=== PATIENT | male | born 1955 | race Hispanic/Latino ===

== ENCOUNTER 2017-03-07 17:08 | Inpatient (IN) | payer MEDICARE ==
--- NOTE | 2017-03-07 18:01 | ED PDOC ---
HPI: Psych/Substance Abuse Time Seen by Provider: 03/07/17 17:48 Chief Complaint (Nursing): Psychiatric Evaluation Chief Complaint (Provider): AMS, fall History Per: Patient, EMS Additional Complaint(s): 61-year-old non-domiciled male presents to emergency department for evaluation status post fall. Patient had witnessed fall on sidewalk and as per EMS hit the right side of his head against the ground as witnessed by bystanders. Patient was laying on the ground when EMS arrived and when EMS tried to help the patient he became violent and very combative. Patient was transported here and arrived acutely agitated. Past Medical History Reviewed: Historical Data, Nursing Documentation, Vital Signs, Unable To Obtain - Family History Family History: States: Unknown Family Hx - Living Arrangements Living Arrangements: Other (non-domiciled) - Home Medications Home Medications: Ambulatory Orders Medication Instructions Recorded Unobtainable 03/08/17 - Allergies Allergies/Adverse Reactions: Allergies Allergy/AdvReac Type Severity Reaction Status Date / Time No Known Allergies Allergy Verified 03/07/17 17:13 Review of Systems ROS Statement: Except As Marked, All Systems Reviewed And Found Negative Neurological: Positive for: Other (head injury, fall) Physical Exam - Reviewed Nursing Documentation Reviewed: Yes Vital Signs Reviewed: Yes - Physical Exam Appears: Negative for: Well (discheveled and unkempt) Skin: Negative for: Rash Eye Exam: Positive for: Normal appearance Cardiovascular/Chest: Positive for: Regular Rate, Rhythm Respiratory: Positive for: Normal Breath Sounds Extremity: Positive for: Pedal Edema, Other (blisters, edema and skin breakdown noted to feet bilaterally) Neurologic/Psych: Negative for: Other (alert, agitated, not answers questions appropriately) - Laboratory Results Result Diagrams: 03/07/17 18:53 03/07/17 18:53 - ECG O2 Sat by Pulse Oximetry: 95 Pulse Ox Interpretation: Normal - Other Rad bedside chest X-Ray: Interpreted by Me, Viewed By Me X-Ray Interpretation: no acute finding Medical Decision Making Medical Decision Makin61 year old EDP s/p fall Patient is combative upon arrival, threatening and yelling at ED staff. Patient was placed in four point restraints for his safety and safety of ED staff. He was medicated with 2 mg IM Ativan and 5 mg IM Haldol for acute agitation. Patient was placed under bedside one-to-one observation Plan: CBC CMP CT head UA UDS BAL Disposition - Clinical Impression Clinical Impression: Fall, Agitation, Altered mental state - Patient ED Disposition Is Patient to be Admitted: Transfer of Care - Disposition Disposition: Transfer of Care Disposition Time: 20:03 Condition: GUARDED Patient Signed Over To: Sonia Loera Handoff Comments: Signed out pending diagnostic testing results and final disposition
--- NOTE | 2017-03-07 18:34 | RAD ---
HISTORY: Medical clearance. COMPARISON: No prior. FINDINGS: LUNGS: No active pulmonary disease. PLEURA: No significant pleural effusion identified, no pneumothorax apparent. CARDIOVASCULAR: No radiographic findings to suggest acute or significant cardiovascular disease. OSSEOUS STRUCTURES: No significant abnormalities. VISUALIZED UPPER ABDOMEN: Normal. OTHER FINDINGS: None. IMPRESSION: No active disease.
[2017-03-07 19:00] LABS: BASO % 0.2 % (0.0-2.0); EOS % 0.6 % (0.0-4.0); HEMATOCRIT 38.2 % (35.0-51.0); LYMPH # 0.5 K/uL (1.0-4.3); LYMPH % 6.2 % (20.0-40.0); MEAN CELL VOLUME 91.1 fl (80.0-94.0); MEAN CORPUSCULAR HEMOGLOBIN 30.9 pg (27.0-31.0); MEAN PLATELET VOLUME 8.5 fl (7.2-11.7); MONO % 11.6 % (0.0-10.0); NEUT # 6.9 K/uL (1.8-7.0); NEUT % 81.4 % (50.0-75.0); NRBC % 0.2 % (0.0-0.0); PLATELET COUNT 124 K/uL (130-400); RED CELL DISTRIBUTION WIDTH 14.2 % (11.5-14.5); WHITE BLOOD COUNT 8.5 K/uL (4.8-10.8)
[2017-03-07 19:09] LABS: ALB/GLOB RATIO 1.1 (1.0-2.1); ALCOHOL SERUM < 10 mg/dl (0-10); ALKALINE PHOSPHATASE 81 U/L (38-126); ALT/SGPT 59 U/L (21-72); AST/SGOT 52 U/L (17-59); BILIRUBIN,TOTAL 0.7 mg/dl (0.2-1.3); BLOOD UREA NITROGEN 19 mg/dl (9-20); CALCIUM 8.9 mg/dL (8.4-10.2); CARBON DIOXIDE 24 mmol/L (22-30); CHLORIDE 103 mmol/L (98-107); GFR AFRICAN-AMERICAN > 60; GLUCOSE,RANDOM 113 mg/dL (75-110); POTASSIUM 3.5 MMOL/L (3.6-5.0); SODIUM 138 mmol/l (132-148); TOTAL PROTEIN 7.2 G/DL (6.3-8.2)
[2017-03-07 20:49] LABS: LARGE PLATELETS PRESENT; NEUTROPHIL 84 % (42-75); TOTAL CELLS COUNTED 100
--- NOTE | 2017-03-07 21:12 | ED PDOC ---
- Laboratory Results Result Diagrams: 03/10/17 04:20 03/10/17 04:20 - Progress ED Course And Treament: Case endorsed to advertising copy writer from [facility] pending imaging, urine, re-eval EXAM: CT Head Without Intravenous Contrast EXAM DATE/TIME: 03/07/2017 CLINICAL HISTORY: Signs and symptoms; Altered mental status/memory loss; Additional info: AMS TECHNIQUE: Axial computed tomography images of the head/brain without intravenous contrast. All CT scans at this facility use one or more dose reduction techniques, viz.: automated exposure control; ma/kV adjustment per patient size (including targeted exams where dose is matched to indication; i.e. head); or iterative reconstruction technique. Coronal and sagittal reformatted images were created and reviewed. COMPARISON: Per the supervisor cured meats, the patient has no prior studies for comparison.[id number] FINDINGS: Brain: No acute intracranial hemorrhage. No abnormal extra-axial fluid collection. No herniation. Patent basal cisterns. 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 Old lacunar infarcts in the right thalamus and both basal ganglia. Preserved obrien-white matter differentiation in the rest of the brain. No evidence of acute ischemia. Cerebral white matter low attenuation compatible with chronic small vessel ischemic changes. No evident intracranial mass. Ventricles: No hydrocephalus. Bones/joints: No destructive calvarial lesion. Soft tissues: No acute findings. Sinuses: Mild mucosal thickening in the paranasal sinuses, most prominent in the left maxillary sinus. Mastoid air cells: The mastoid air cells are clear. Orbits: No evident acute abnormality of the intraorbital contents. Dental: Multiple dental caries. Low attenuation surrounding the roots of multiple teeth. IMPRESSION: 1. No evident acute intracranial abnormality. Non-acute findings as described above. 2. Mild mucosal thickening in the paranasal sinuses. 3. Multiple dental caries. Low attenuation surrounding the roots of multiple teeth is consistent with apical periodontitis, including possible periapical abscess(es). 3:00 Patient awake, able to provide name and . Patient has MR# [id number] 5:30 Patient helped out of bed and noted to have unsteady gait; grabbing on to stokes and chairs. BP elevated, HR elevated. Patient denies history of recent alcohol use. CAse discussed with ED attending Dr. Butts; will admit for tachycardia, hypertension, and unsteady gait. Case discussed with Dr. Daniels for admission. Disposition - Clinical Impression Clinical Impression: Fall, Agitation, Altered mental state - POA Present On Arrival: Falls Or Trauma - Disposition Disposition: Admitted as In-Patient Disposition Time: 06:00 Condition: FAIR
[2017-03-07 21:52] LABS: URINE BILIRUBIN NEGATIVE (NEGATIVE); URINE BLOOD MODERATE (NEGATIVE); URINE COLOR STRAW (YELLOW); URINE GLUCOSE (UA) NEG (Normal); URINE KETONE NEGATIVE (NEGATIVE); URINE LEUKOCYTE ESTERASE NEG Leu/uL (Negative); URINE PROTEIN 30 mg/dL (NEGATIVE); URINE UROBILINOGEN 0.2-1.0 mg/dL (0.2-1.0); WBC URINE < 1 /hpf (0-5)
[2017-03-07] MEDS ORDERED: Sodium Chloride 0.9% 1,000 ML IV STA (22:08)
[2017-03-07 22:11] LABS: RBC URINE 20 /hpf (0-3)
[2017-03-07 22:12] LABS: URINE BACTERIA RARE (<OCC)
[2017-03-07] MEDS ORDERED: Multivitamin (MVI) 10 ML, Thiamine 100 MG in Dextrose 5%/0.45% NS 1,000 ML IV ONE (23:00)
[2017-03-08] MEDS ORDERED: MULTIVITAMIN IV ONE (00:45)
[2017-03-08] MEDS ORDERED: DEXTROSE IV ONE (00:45)
[2017-03-08] MEDS ORDERED: THIAMINE IV ONE (00:45)
[2017-03-08] MEDS ORDERED: NS IV ONE (00:45)
[2017-03-08 00:48] LABS: LIPASE 133 U/L (23-300)
[2017-03-08 07:40] LABS: TROPONIN I 0.102 ng/mL (0.00-0.120)
--- NOTE | 2017-03-08 07:55 | CT ---
PROCEDURE: CT HEAD WITHOUT CONTRAST. HISTORY: AMS COMPARISON: None available. TECHNIQUE: Axial computed tomography images were obtained through the head/brain without intravenous contrast. Radiation dose: Total exam DLP = 1281.71 mGy-cm. This CT exam was performed using one or more of the following dose reduction techniques: Automated exposure control, adjustment of the mA and/or kV according to patient size, and/or use of iterative reconstruction technique. FINDINGS: HEMORRHAGE: No intracranial hemorrhage. BRAIN: No mass effect or edema. Encephalomalacia change left occipital region. Additional foci of diminished attenuation in both basal ganglia and right thalamus. VENTRICLES: Unremarkable. No hydrocephalus. CALVARIUM: Unremarkable. PARANASAL SINUSES: Unremarkable as visualized. No significant inflammatory changes. MASTOID AIR CELLS: Unremarkable as visualized. No inflammatory changes. OTHER FINDINGS: None. IMPRESSION: No acute intracranial abnormalities. No significant findings to account for the clinical presentation. Additional benign and/or incidental findings described above. Concordant results (preliminary interpretation) provided by [email or web address]. Procedure Completed: 20:03 Preliminary ([facility]) Report: Dictated and Authenticated: 20:37 Final Interpretation: 07:53 March 08, 2017.
--- NOTE | 2017-03-08 09:57 | CP.PCM.HP ---
Past Patient History - Past Social History Smoking Status: Unknown If Ever Smoked - CARDIAC Hx Cardiac Disorders: No Hx Hypertension: No - PULMONARY Hx Tuberculosis: No - NEUROLOGICAL HX Cerebrovascular Accident: No Hx Seizures: No - HEMATOLOGICAL/ONCOLOGICAL Hx Cancer: No Hx Human Immunodeficiency Virus (HIV): No - GENITOURINARY/GYNECOLOGICAL Hx Sexually Transmitted Disorders: No - PSYCHIATRIC Hx Substance Use: No Meds Allergies/Adverse Reactions: Allergies Allergy/AdvReac Type Severity Reaction Status Date / Time No Known Allergies Allergy Verified 03/07/17 17:13 Results - Vital Signs Recent Vital Signs: Last Vital Signs Temp 97.6 F 03/08/17 05:58 Pulse 85 03/08/17 08:12 Resp 17 03/08/17 08:12 BP 164/98 H 03/08/17 08:12 Pulse Ox 95 03/08/17 08:12 - Labs Result Diagrams: 03/07/17 18:53 03/07/17 18:53 Labs: Laboratory Results - last 24 hr 03/07/17 03/07/17 03/07/17 18:53 18:53 21:41 WBC 8.5 RBC 4.19 L Hgb 13.0 Hct 38.2 MCV 91.1 MCH 30.9 MCHC 34.0 RDW 14.2 Plt Count 124 L MPV 8.5 Neut % (Auto) 81.4 H Lymph % (Auto) 6.2 L [place] % (Auto) 11.6 H Eos % (Auto) 0.6 Baso % (Auto) 0.2 Neut # 6.9 Lymph # 0.5 L [place] # 1.0 H Eos # 0.0 Baso # 0.0 Neutrophils % (Manual) 84 H Band Neutrophils % 1 Lymphocytes % (Manual) 7 L Monocytes % (Manual) 8 Toxic Granulation Present Platelet Estimate Slightly decreased L Large Platelets Present Anisocytosis (manual) Slight Sodium 138 Potassium 3.5 L Chloride 103 Carbon Dioxide 24 Anion Gap 15 BUN 19 Creatinine 0.9 Est GFR ( Amer) > 60 Est GFR (Non-Af Amer) > 60 Random Glucose 113 H Calcium 8.9 Total Bilirubin 0.7 AST 52 ALT 59 Alkaline Phosphatase 81 Troponin I NT-Pro-B Natriuret Pep Total Protein 7.2 Albumin 3.7 Globulin 3.4 Albumin/Globulin Ratio 1.1 Lipase 133 Urine Color Urine Clarity Urine pH Ur Specific [place] Urine Protein Urine Glucose (UA) Urine Ketones Urine Blood Urine Nitrate Urine Bilirubin Urine Urobilinogen Ur Leukocyte Esterase Urine RBC (Auto) Urine Microscopic WBC Ur Squamous Epith Cells Amorphous Sediment Urine Bacteria Urine Opiates Screen Negative Urine Methadone Screen Negative Ur Barbiturates Screen Negative Ur Phencyclidine Scrn Negative Ur Amphetamines Screen Negative U Benzodiazepines Scrn Negative U Oth Cocaine Metabols Negative U Cannabinoids Screen Negative Alcohol, Quantitative < 10 03/07/17 03/08/17 21:41 07:05 WBC RBC Hgb Hct MCV MCH MCHC RDW Plt Count MPV Neut % (Auto) Lymph % (Auto) [place] % (Auto) Eos % (Auto) Baso % (Auto) Neut # Lymph # [place] # Eos # Baso # Neutrophils % (Manual) Band Neutrophils % Lymphocytes % (Manual) Monocytes % (Manual) Toxic Granulation Platelet Estimate Large Platelets Anisocytosis (manual) Sodium Potassium Chloride Carbon Dioxide Anion Gap BUN Creatinine Est GFR ( Amer) Est GFR (Non-Af Amer) Random Glucose Calcium Total Bilirubin AST ALT Alkaline Phosphatase Troponin I 0.1020 NT-Pro-B Natriuret Pep 9760 H Total Protein Albumin Globulin Albumin/Globulin Ratio Lipase Urine Color Straw Urine Clarity Clear Urine pH 8.0 Ur Specific [place] 1.009 Urine Protein 30 Urine Glucose (UA) Neg Urine Ketones Negative Urine Blood Moderate Urine Nitrate Negative Urine Bilirubin Negative Urine Urobilinogen 0.2-1.0 Ur Leukocyte Esterase Neg Urine RBC (Auto) 20 H Urine Microscopic WBC < 1 Ur Squamous Epith Cells < 1 Amorphous Sediment Few H Urine Bacteria Rare Urine Opiates Screen Urine Methadone Screen Ur Barbiturates Screen Ur Phencyclidine Scrn Ur Amphetamines Screen U Benzodiazepines Scrn U Oth Cocaine Metabols U Cannabinoids Screen Alcohol, Quantitative
[2017-03-08] MEDS ORDERED: Potassium Chloride 20 mEq/15 ml LIQ UD PO ONE (10:30)
[2017-03-08 12:42] LABS: THYROID STIMULATING HORMONE 2.74 mIU/ML (0.46-4.68)
--- NOTE | 2017-03-08 18:06 | CARD ---
APPROVED REPORT EKG Measurement Heart [id number] <Conclusion> Sinus tachycardia Septal infarct, age undetermined Abnormal ECG
[2017-03-09] MEDS: levoFLOXacin 500 mg in D5W 500 MG/100 ML BAG IVPB SCH (06:09)
[2017-03-09 07:38] LABS: RBC URINE 1 /hpf (0-3); URINE BILIRUBIN NEGATIVE (NEGATIVE); URINE BLOOD NEGATIVE (NEGATIVE); URINE COLOR YELLOW (YELLOW); URINE GLUCOSE (UA) 50 mg/dL (Normal); URINE KETONE TRACE mg/dL (NEGATIVE); URINE LEUKOCYTE ESTERASE NEG Leu/uL (Negative); URINE PROTEIN 30 mg/dL (NEGATIVE); WBC URINE < 1 /hpf (0-5)
[2017-03-09] MEDS ORDERED: EnalaprilAT 1.25 mg/ml Inj IV ONE (15:16)
[2017-03-09 15:44] LABS: BASO % 0.3 % (0.0-2.0); EOS # 0.3 K/uL (0.0-0.7); EOS % 2.7 % (0.0-4.0); HEMATOCRIT 39.4 % (35.0-51.0); LYMPH # 1.1 K/uL (1.0-4.3); MEAN CELL VOLUME 90.7 fl (80.0-94.0); MEAN CORPUSCULAR HEMOGLOBIN 30.5 pg (27.0-31.0); MEAN CORPUSCULAR HGB CONC 33.6 g/dL (33.0-37.0); MEAN PLATELET VOLUME 8.2 fl (7.2-11.7); MONO # 1.1 K/uL (0.0-0.8); MONO % 12.2 % (0.0-10.0); NEUT # 6.8 K/uL (1.8-7.0); NEUT % 72.8 % (50.0-75.0); WHITE BLOOD COUNT 9.3 K/uL (4.8-10.8)
[2017-03-09 16:01] LABS: ALKALINE PHOSPHATASE 64 U/L (38-126); ALT/SGPT 56 U/L (21-72); AST/SGOT 51 U/L (17-59); BILIRUBIN,TOTAL 1.3 mg/dl (0.2-1.3); BLOOD UREA NITROGEN 21 mg/dl (9-20); CALCIUM 8.7 mg/dL (8.4-10.2); CARBON DIOXIDE 24 mmol/L (22-30); CHLORIDE 107 mmol/L (98-107); GFR AFRICAN-AMERICAN > 60; GLUCOSE,RANDOM 110 mg/dL (75-110); POTASSIUM 3.6 MMOL/L (3.6-5.0); SODIUM 140 mmol/l (132-148); TOTAL PROTEIN 6.7 G/DL (6.3-8.2)
--- NOTE | 2017-03-09 21:24 | CP.PCM.PN ---
Subjective - Date & Time of Evaluation Date of Evaluation: 03/09/17 Time of Evaluation: 14:30 Objective - Vital Signs/Intake and Output Vital Signs (last 24 hours): Temp Pulse Resp BP Pulse Ox 98.8 F 103 H 16 176/90 H 97 03/09/17 20:47 03/09/17 20:47 03/09/17 20:47 03/09/17 20:47 03/09/17 20:47 - Medications Medications: Current Medications Acetaminophen (Tylenol 325mg Tab) 650 mg PO Q4 PRN PRN Reason: fever of 100.3 and above Last Admin: 03/09/17 06:05 Dose: 650 mg Clonidine HCl (Catapres-Tts2 0.2 Mg/24 Hr) 1 patch TD Q7D [facility] Last Admin: 03/09/17 15:58 Dose: 1 patch Heparin Sodium (Porcine) (Heparin) 5,000 units SC Q8 SANDRA PRN Reason: Protocol Hydralazine HCl (Apresoline) 10 mg IV Q6 PRN PRN Reason: SBP>180. DBP>110 Last Admin: 03/09/17 10:40 Dose: 10 mg Levofloxacin/Dextrose (Levaquin 500mg) 500 mg in 100 mls @ 100 mls/hr IVPB DAILY [facility] Last Admin: 03/09/17 06:09 Dose: 100 mls/hr - Labs Labs: 03/09/17 15:39 03/09/17 15:39
[2017-03-10 06:03] LABS: BASO # 0.1 K/uL (0.0-0.2); BASO % 0.9 % (0.0-2.0); EOS # 0.5 K/uL (0.0-0.7); EOS % 6.7 % (0.0-4.0); HEMATOCRIT 39.3 % (35.0-51.0); LYMPH # 1.3 K/uL (1.0-4.3); LYMPH % 16.8 % (20.0-40.0); MEAN CELL VOLUME 92.3 fl (80.0-94.0); MEAN CORPUSCULAR HEMOGLOBIN 30.7 pg (27.0-31.0); MEAN CORPUSCULAR HGB CONC 33.3 g/dL (33.0-37.0); MEAN PLATELET VOLUME 8.6 fl (7.2-11.7); MONO # 0.8 K/uL (0.0-0.8); MONO % 11.1 % (0.0-10.0); NEUT # 4.8 K/uL (1.8-7.0); NEUT % 64.5 % (50.0-75.0); NRBC % 0.1 % (0.0-0.0); RED CELL DISTRIBUTION WIDTH 13.8 % (11.5-14.5); WHITE BLOOD COUNT 7.5 K/uL (4.8-10.8)
[2017-03-10 07:13] LABS: ALB/GLOB RATIO 0.9 (1.0-2.1); ALKALINE PHOSPHATASE 60 U/L (38-126); ALT/SGPT 61 U/L (21-72); AST/SGOT 51 U/L (17-59); BILIRUBIN,TOTAL 1.5 mg/dl (0.2-1.3); BLOOD UREA NITROGEN 26 mg/dl (9-20); CALCIUM 8.5 mg/dL (8.4-10.2); CARBON DIOXIDE 22 mmol/L (22-30); CHLORIDE 108 mmol/L (98-107); GFR AFRICAN-AMERICAN > 60; GLUCOSE,RANDOM 84 mg/dL (75-110); MAGNESIUM 1.8 MG/DL (1.6-2.3); POTASSIUM 3.6 MMOL/L (3.6-5.0); SODIUM 140 mmol/l (132-148); TOTAL PROTEIN 6.5 G/DL (6.3-8.2)
[2017-03-10] MEDS: levoFLOXacin 500 mg in D5W 500 MG/100 ML BAG IVPB SCH (14:25)
--- NOTE | 2017-03-11 00:28 | CP.PCM.PN ---
Subjective - Date & Time of Evaluation Date of Evaluation: 03/10/17 Time of Evaluation: 11:30 Objective - Vital Signs/Intake and Output Vital Signs (last 24 hours): Temp Pulse Resp BP Pulse Ox 97.4 F L 94 H 20 179/89 H 98 03/11/17 00:09 03/11/17 00:09 03/11/17 00:09 03/11/17 00:09 03/11/17 00:09 - Medications Medications: Current Medications Acetaminophen (Tylenol 325mg Tab) 650 mg PO Q4 PRN PRN Reason: fever of 100.3 and above Last Admin: 03/09/17 06:05 Dose: 650 mg Amlodipine Besylate (Norvasc) 10 mg PO DAILY [facility] Last Admin: 03/10/17 14:22 Dose: 10 mg Clonidine HCl (Catapres-Tts3 0.3 Mg/24 Hr) 1 patch TD Q7D [facility] Last Admin: 03/10/17 16:56 Dose: 1 patch Heparin Sodium (Porcine) (Heparin) 5,000 units SC Q8 SANDRA PRN Reason: Protocol Last Admin: 03/10/17 16:57 Dose: 5,000 units Hydralazine HCl (Apresoline) 10 mg IV Q6 PRN PRN Reason: SBP>180. DBP>110 Last Admin: 03/10/17 16:57 Dose: 10 mg Levofloxacin/Dextrose (Levaquin 500mg) 500 mg in 100 mls @ 100 mls/hr IVPB DAILY [facility] Last Admin: 03/10/17 14:25 Dose: 100 mls/hr - Labs Labs: 03/10/17 04:20 03/10/17 04:20
[2017-03-11] MEDS: levoFLOXacin 500 mg in D5W 500 MG/100 ML BAG IVPB SCH (08:58)
--- NOTE | 2017-03-11 23:59 | CP.PCM.PN ---
Objective - Vital Signs/Intake and Output Vital Signs (last 24 hours): Temp Pulse Resp BP Pulse Ox 97.6 F 76 20 160/102 H 100 03/11/17 19:32 03/11/17 20:59 03/11/17 19:32 03/11/17 20:59 03/11/17 19:32 - Medications Medications: Current Medications Acetaminophen (Tylenol 325mg Tab) 650 mg PO Q4 PRN PRN Reason: fever of 100.3 and above Last Admin: 03/09/17 06:05 Dose: 650 mg Amlodipine Besylate (Norvasc) 10 mg PO DAILY [facility] Last Admin: 03/11/17 08:57 Dose: 10 mg Carvedilol (Coreg) 6.25 mg PO Q12 [facility] Last Admin: 03/11/17 20:59 Dose: 6.25 mg Clonidine HCl (Catapres-Tts3 0.3 Mg/24 Hr) 1 patch TD Q7D [facility] Last Admin: 03/10/17 16:56 Dose: 1 patch Heparin Sodium (Porcine) (Heparin) 5,000 units SC Q8 SANDRA PRN Reason: Protocol Last Admin: 03/11/17 16:47 Dose: 5,000 units Hydralazine HCl (Apresoline) 10 mg IV Q6 PRN PRN Reason: SBP>180. DBP>110 Last Admin: 03/11/17 13:03 Dose: 10 mg Levofloxacin/Dextrose (Levaquin 500mg) 500 mg in 100 mls @ 100 mls/hr IVPB DAILY [facility] Last Admin: 03/11/17 08:58 Dose: 100 mls/hr - Labs Labs: 03/10/17 04:20 03/10/17 04:20
[2017-03-12] MEDS: levoFLOXacin 500 mg in D5W 500 MG/100 ML BAG IVPB SCH (08:48)
--- NOTE | 2017-03-12 23:56 | CON ---
DATE: CARDIOLOGY CONSULTATION REASON FOR CONSULTATION: Uncontrolled hypertension and occasional ventricular ectopy on the monitor. HISTORY OF PRESENT ILLNESS: The patient is a 61-year-old who is homeless, who was found falling on a sidewalk, was brought by the EMS. The patient was combative in the field and agitated in the emergency room. There is no reported ventricular arrhythmia on this patient. The patient does not give me any reliable answers to my questions and he tells me he lives in [place], but does not elaborate more on his life conditions. The patient denies any heart condition in the past. SOCIAL HISTORY: The patient is a smoker. He denies drinking. MEDICATIONS: Hydralazine 10 mg intravenously q.6 hours p.r.n., clonidine 0.3 mg 1 patch weekly, Coreg 6.25 mg twice a day, heparin 5000 units q.8 hours, Levaquin 500 mg intravenously daily, Norvasc 10 mg once a day. REVIEW OF SYSTEMS: No reported seizure on telemetry. No reported hypotension and no reported ventricular tachycardia. PHYSICAL EXAMINATION: GENERAL: The patient is a middle-aged male, who does not appear to be in any distress. VITAL SIGNS: Blood pressure 164/90, heart rate 80, temperature 97.7, respirations 18. HEENT: No pallor or icterus. NECK: No JVD. CHEST: Clear. HEART: S1 and S2 regular. EXTREMITIES: No edema. LABORATORY DATA: Urine drug screen is negative. Alcohol level is below 10. SMA-7 on 03/10/2017, sodium 140, potassium 3.6, chloride 108, CO2 of 22, glucose 84, BUN 26, creatinine 1.1. Hemoglobin, hematocrit, and white count are within normal limits. Platelet count is slightly below normal at 124. RPR is nonreactive. Head CT scan without contrast, no acute intracranial abnormality. Chest x-ray was unremarkable except for prominent bronchovascular markings. EKG reveals sinus tachycardia at rate of 120, septal infarct of indeterminate age. ASSESSMENT: 1. Status post fall. 2. Hypertension. 3. Mild thrombocytopenia. RECOMMENDATIONS: Continue current IV hydralazine p.r.n. Continue Coreg 6.25 mg twice a day. Continue clonidine patch at 0.3 mg weekly. Continue Norvasc 10 mg once a day. Obtain an echocardiogram and consider repeating head CT scan without contrast. Carlos Gray MD
--- NOTE | 2017-03-13 00:04 | CP.PCM.PN ---
Subjective - Date & Time of Evaluation Date of Evaluation: 03/12/17 Time of Evaluation: 13:30 Objective - Vital Signs/Intake and Output Vital Signs (last 24 hours): Temp Pulse Resp BP Pulse Ox 98.2 F 74 20 175/95 H 100 03/12/17 19:32 03/12/17 21:26 03/12/17 19:32 03/12/17 21:26 03/12/17 19:32 - Medications Medications: Current Medications Acetaminophen (Tylenol 325mg Tab) 650 mg PO Q4 PRN PRN Reason: fever of 100.3 and above Last Admin: 03/09/17 06:05 Dose: 650 mg Amlodipine Besylate (Norvasc) 10 mg PO DAILY [facility] Last Admin: 03/12/17 08:48 Dose: 10 mg Carvedilol (Coreg) 6.25 mg PO Q12 [facility] Last Admin: 03/12/17 21:26 Dose: 6.25 mg Clonidine HCl (Catapres-Tts3 0.3 Mg/24 Hr) 1 patch TD Q7D [facility] Last Admin: 03/10/17 16:56 Dose: 1 patch Heparin Sodium (Porcine) (Heparin) 5,000 units SC Q8 SANDRA PRN Reason: Protocol Last Admin: 03/12/17 16:35 Dose: 5,000 units Hydralazine HCl (Apresoline) 10 mg IV Q6 PRN PRN Reason: SBP>180. DBP>110 Last Admin: 03/11/17 13:03 Dose: 10 mg Levofloxacin/Dextrose (Levaquin 500mg) 500 mg in 100 mls @ 100 mls/hr IVPB DAILY [facility] Last Admin: 03/12/17 08:48 Dose: 100 mls/hr - Labs Labs: 03/10/17 04:20 03/10/17 04:20
[2017-03-13] MEDS: levoFLOXacin 500 mg in D5W 500 MG/100 ML BAG IVPB SCH ×2 (10:08→10:09)
[2017-03-13 12:42] VITALS: TEMP 97.6
--- NOTE | 2017-03-13 15:34 | PN ---
DATE: SUBJECTIVE: The patient denies any chest pain. PHYSICAL EXAMINATION: VITAL SIGNS: Blood pressure 166/99, heart rate 66, temperature 97.8, respirations 18. HEENT: Normocephalic. CHEST: Bilateral rhonchi. HEART: S1 and S2, regular. EXTREMITIES: No edema. ASSESSMENT: 1. Status post fall. 2. Uncontrolled hypertension. RECOMMENDATIONS: Continue Norvasc 10 mg once a day, Coreg 6.25 mg twice a day, clonidine patch at 0.3 mg weekly. Discontinue IV hydralazine and start hydralazine orally at 50 mg q. 8 hours. I will follow the echocardiographic studies that was performed today. Carlos Gray MD
[2017-03-13 16:05] VITALS: BP 138/79; PULSE 75; RESP 20; O2SAT 98
--- NOTE | 2017-03-13 23:15 | CP.PCM.PN ---
Subjective - Date & Time of Evaluation Date of Evaluation: 03/13/17 Time of Evaluation: 13:25 Objective - Vital Signs/Intake and Output Vital Signs (last 24 hours): Temp Pulse Resp BP Pulse Ox 97.6 F 75 20 138/79 98 03/13/17 17:00 03/13/17 17:00 03/13/17 17:00 03/13/17 17:00 03/13/17 17:00 Intake and Output: 03/13/17 03/14/17 18:59 06:59 Intake Total 350 Balance 350 - Labs Labs: 03/10/17 04:20 03/10/17 04:20
--- NOTE | 2017-03-13 23:21 | CP.PCM.DIS ---
Provider - Provider Date of Admission: 03/08/17 06:05 Attending physician: Cortez Daniels MD Time Spent in preparation of Discharge (in minutes): 25 Hospital Course - Lab Results Lab Results: Micro Results 03/09/17 07:05 Urine,Clean Catch Urine Culture - Final No Growth (<1,000 CFU/ML) Most Recent Lab Values WBC 7.5 K/uL (4.8-10.8) 03/10/17 04:20 RBC 4.26 Mil/uL (4.40-5.90) L 03/10/17 04:20 Hgb 13.1 g/dL (12.0-18.0) 03/10/17 04:20 Hct 39.3 % (35.0-51.0) 03/10/17 04:20 MCV 92.3 fl (80.0-94.0) 03/10/17 04:20 MCH 30.7 pg (27.0-31.0) 03/10/17 04:20 MCHC 33.3 g/dL (33.0-37.0) 03/10/17 04:20 RDW 13.8 % (11.5-14.5) 03/10/17 04:20 Plt Count 124 K/uL (130-400) L 03/10/17 04:20 MPV 8.6 fl (7.2-11.7) 03/10/17 04:20 Neut % (Auto) 64.5 % (50.0-75.0) 03/10/17 04:20 Lymph % (Auto) 16.8 % (20.0-40.0) L 03/10/17 04:20 [place] % (Auto) 11.1 % (0.0-10.0) H 03/10/17 04:20 Eos % (Auto) 6.7 % (0.0-4.0) H 03/10/17 04:20 Baso % (Auto) 0.9 % (0.0-2.0) 03/10/17 04:20 Neut # 4.8 K/uL (1.8-7.0) 03/10/17 04:20 Lymph # 1.3 K/uL (1.0-4.3) 03/10/17 04:20 [place] # 0.8 K/uL (0.0-0.8) 03/10/17 04:20 Eos # 0.5 K/uL (0.0-0.7) 03/10/17 04:20 Baso # 0.1 K/uL (0.0-0.2) 03/10/17 04:20 Neutrophils % (Manual) 84 % (42-75) H 03/07/17 18:53 Band Neutrophils % 1 % (0-2) 03/07/17 18:53 Lymphocytes % (Manual) 7 % (20-50) L 03/07/17 18:53 Monocytes % (Manual) 8 % (0-10) 03/07/17 18:53 Toxic Granulation Present 03/07/17 18:53 Platelet Estimate Slightly decreased (NORMAL) L 03/07/17 18:53 Large Platelets Present 03/07/17 18:53 Anisocytosis (manual) Slight 03/07/17 18:53 Sodium 140 mmol/l (132-148) 03/10/17 04:20 Potassium 3.6 MMOL/L (3.6-5.0) 03/10/17 04:20 Chloride 108 mmol/L (98-107) H 03/10/17 04:20 Carbon Dioxide 22 mmol/L (22-30) 03/10/17 04:20 Anion Gap 14 (10-20) 03/10/17 04:20 BUN 26 mg/dl (9-20) H 03/10/17 04:20 Creatinine 1.1 mg/dL (0.8-1.5) 03/10/17 04:20 Est GFR ( Amer) > 60 03/10/17 04:20 Est GFR (Non-Af Amer) > 60 03/10/17 04:20 Random Glucose 84 mg/dL (75-110) 03/10/17 04:20 Calcium 8.5 mg/dL (8.4-10.2) 03/10/17 04:20 Magnesium 1.8 MG/DL (1.6-2.3) 03/10/17 04:20 Total Bilirubin 1.5 mg/dl (0.2-1.3) H 03/10/17 04:20 AST 51 U/L (17-59) 03/10/17 04:20 ALT 61 U/L (21-72) 03/10/17 04:20 Alkaline Phosphatase 60 U/L (38-126) 03/10/17 04:20 Ammonia 26 umo/L (16-60) 03/08/17 10:45 Troponin I 0.1020 ng/mL (0.00-0.120) 03/08/17 07:05 NT-Pro-B Natriuret Pep 9760 pg/ml (0-900) H 03/08/17 07:05 Total Protein 6.5 G/DL (6.3-8.2) 03/10/17 04:20 Albumin 3.1 g/dL (3.5-5.0) L 03/10/17 04:20 Globulin 3.4 gm/dL (2.2-3.9) 03/10/17 04:20 Albumin/Globulin Ratio 0.9 (1.0-2.1) L 03/10/17 04:20 Lipase 133 U/L (23-300) 03/07/17 18:53 Vitamin B12 549 pg/mL (239-931) 03/08/17 11:30 TSH 3rd Generation 2.74 mIU/ML (0.46-4.68) 03/08/17 11:30 Urine Color Yellow (YELLOW) 03/09/17 07:05 Urine Clarity Clear (Clear) 03/09/17 07:05 Urine pH 8.0 (5.0-8.0) 03/09/17 07:05 Ur Specific [place] 1.015 (1.003-1.030) 03/09/17 07:05 Urine Protein 30 mg/dL (NEGATIVE) 03/09/17 07:05 Urine Glucose (UA) 50 mg/dL (Normal) 03/09/17 07:05 Urine Ketones Trace mg/dL (NEGATIVE) 03/09/17 07:05 Urine Blood Negative (NEGATIVE) 03/09/17 07:05 Urine Nitrate Negative (NEGATIVE) 03/09/17 07:05 Urine Bilirubin Negative (NEGATIVE) 03/09/17 07:05 Urine Urobilinogen 2.0 mg/dL (0.2-1.0) 03/09/17 07:05 Ur Leukocyte Esterase Neg [place]/uL (Negative) 03/09/17 07:05 Urine RBC (Auto) 1 /hpf (0-3) 03/09/17 07:05 Urine Microscopic WBC < 1 /hpf (0-5) 03/09/17 07:05 Ur Squamous Epith Cells 1 /hpf (0-5) 03/09/17 07:05 Amorphous Sediment Few /ul (<OCC) H 03/07/17 21:41 Urine Bacteria Rare (<OCC) 03/07/17 21:41 Urine Opiates Screen Negative (NEGATIVE) 03/07/17 21:41 Urine Methadone Screen Negative (NEGATIVE) 03/07/17 21:41 Ur Barbiturates Screen Negative (NEGATIVE) 03/07/17 21:41 Ur Phencyclidine Scrn Negative (NEGATIVE) 03/07/17 21:41 Ur Amphetamines Screen Negative (NEGATIVE) 03/07/17 21:41 U Benzodiazepines Scrn Negative (NEGATIVE) 03/07/17 21:41 U Oth Cocaine Metabols Negative (NEGATIVE) 03/07/17 21:41 U Cannabinoids Screen Negative (NEGATIVE) 03/07/17 21:41 Alcohol, Quantitative < 10 mg/dl (0-10) 03/07/17 18:53 RPR Nonreactive (NONREACTIVE) 03/08/17 11:30 Discharge Plan - Follow Up Plan Condition: GUARDED Disposition: HOME/ ROUTINE Instructions: Hypertensive Crisis (DC)
--- NOTE | 2017-03-14 10:54 | CARD ---
APPROVED REPORT EXAM: Two-dimensional and M-mode echocardiogram with Doppler and color Doppler. Other Information Quality : ExcellentRhythm : NSR INDICATION Hypertension/HCVD 2D DIMENSIONS IVSd1.53 (0.7-1.1cm)LVDd3.58 (3.9-5.9cm) LVOT Diameter2.42 (1.8-2.4cm)PWd1.28 (0.7-1.1cm) IVSs1.63 (0.8-1.2cm)LVDs3.41 (2.5-4.0cm) FS (%) 4.7 %PWs1.76 (0.8-1.2cm) M-Mode DIMENSIONS Left Atrium (MM)4.53 (2.5-4.0cm)IVSd1.03 (0.7-1.1cm) Aortic Root3.53 (2.2-3.7cm)LVDd5.26 (4.0-5.6cm) Aortic Cusp Exc.2.32 (1.5-2.0cm)PWd1.29 (0.7-1.1cm) IVSs1.50 cmFS (%) 38 % LVDs3.26 (2.0-3.8cm)PWs1.76 cm Mitral Valve MV E Ycxyglnk96.6cm/sMV DECEL [id number] A Fngbmiym98.4cm/s MV IGN61neW/A ratio1.2MVA (PHT)3.66cm2 TDI Lateral E' Peak V12.79cm/sMedial E' Peak V5.13cm/sE/Lateral E'5.8 E/Medial E'14.5 LEFT VENTRICLE The left ventricle is normal size. There is moderate concentric left ventricular hypertrophy. The left ventricular function is normal. The left ventricular ejection fraction is 60% There is normal LV segmental wall motion. Transmitral Doppler flow pattern is Grade I-abnormal relaxation pattern. No left ventricle thrombus noted on this study. There is no ventricular septal defect visualized. There is no left ventricular aneurysm. There is no mass noted in the left ventricle. RIGHT VENTRICLE The right ventricle is normal size. There is normal right ventricular wall thickness. The right ventricular systolic function is normal. ATRIA The left atrium size is normal. The right atrium size is normal. The interatrial septum is intact with no evidence for an atrial septal defect. AORTIC VALVE The aortic valve is normal in structure. No aortic regurgitation is present. There is no aortic valvular stenosis. There is no aortic valvular vegetation. MITRAL VALVE The mitral valve is normal in structure. There is no evidence of mitral valve prolapse. There is no mitral valve stenosis. There is no mitral valve regurgitation noted. TRICUSPID VALVE The tricuspid valve is normal in structure. There is no tricuspid valve regurgitation noted. There is no tricuspid valve prolapse or vegetation. There is no tricuspid valve stenosis. PULMONIC VALVE The pulmonary valve is normal in structure. There is no pulmonic valvular regurgitation. There is no pulmonic valvular stenosis. GREAT VESSELS The aortic root is normal in size. The ascending aorta is normal in size. The IVC is normal in size and collapses >50% with inspiration. PERICARDIAL EFFUSION The pericardium appears normal. There is no pleural effusion. <Conclusion> Normal LV Systolic Function Concentric LVH Impaired Diastolic Relaxation
--- NOTE | 2017-03-21 15:06 | PQF GENQUE ---
This form is a permanent part of the medical record DR. ORTEGA MendiolaSEMAN: COULD YOU PLEASE CONFIRM PRINCIPAL DIAGNOSIS. ALL NOTES ARE IN DRAFT AND H&P/ D/C SUMMARY. Clarification of your documentation is requested to better reflect the severity of illness and intensity of treatment of your patient. Indicators present [] Specify: [] [] Specify: [] [] Specify: [] [] Specify: [] Location in the medical record that reflects the above clinical findings: [] Treatment Provided: [X] PHYSICIAN'S RESPONSE Based on your medical judgment of the clinical indicators outlined above please clarify the following: [X] Practitioner response: Fall, AMS, Agitation, Unsteady Gait and Weakness [] If unable to determine, please check the box, sign and date. Present On Admission (POA) Indicator: [X] Present at the time of admission [] Not present at the time of admission [] Clinically Undetermined In responding to this query, please exercise your independent professional judgment. The fact that a question is asked does not imply that any particular answer is desired or expected. Thank you for your clarification on this documentation. If you have any questions please call:[ ] * Thank you, * STEVIE WHITE [[phone] cushion maker hand [place]
== END 2017-03-13 18:10 | disposition home or self-care (01) | DRG 93 ==
LOC: H.ER 17:08 → EDBD 17:08 → H.ERHOLD 03-08 06:05 → H.TEL 03-09 18:18
PROVIDERS: ADMIT Internal Medicine; ATTEND Internal Medicine
DX: R26.81 Unsteadiness on feet (principal); D69.6 Thrombocytopenia, unspecified; G93.89 Other specified disorders of brain; S09.90XA Unspecified injury of head, initial encounter; Z78.1 Physical restraint status; R41.82 Altered mental status, unspecified; F17.200 Nicotine dependence, unspecified, uncomplicated; I10 Essential (primary) hypertension; I49.3 Ventricular premature depolarization; K02.9 Dental caries, unspecified; K04.5 Chronic apical periodontitis; W10.1XXA Fall (on)(from) sidewalk curb, initial encounter; Y92.480 Sidewalk as the place of occurrence of the external cause; Z59.0 Homelessness; R41.3 Other amnesia; R00.0 Tachycardia, unspecified